=== PATIENT | female | born 1980 | race Caucasian/White ===

== ENCOUNTER 2023-03-16 18:22 | Emergency (ER) | payer OTHER ==
[2023-03-16 18:29] VITALS: BP 123/77; PULSE 122; RESP 18; TEMP 97.7
== END 2023-03-16 20:54 | disposition left against medical advice (07) ==
LOC: EC 18:22
DX: Z53.21 Procedure and treatment not carried out due to patient leaving prior to being seen by health care provider (principal)
CPT/HCPCS: 87040; 87491; 87591; 99499

== ENCOUNTER 2023-03-22 19:57 | Inpatient (IN) | payer OTHER ==
[2023-03-22] MEDS ORDERED: ACETAMINOPHEN TAB 325 MG TAB PO PRN (22:32)
[2023-03-22] MEDS ORDERED: NALOXONE 0.4 MG/ML 1 ML VIAL IV PRN (22:32)
[2023-03-22] MEDS ORDERED: ONDANSETRON 4 MG/2 ML VIAL IVP PRN (22:32)
--- NOTE | 2023-03-22 22:43 | ED ---
Abdominal Pain HPI - General Chief Complaint: Abdominal Pain Stated Complaint: abcess left fallopian tube-sent from other hospita Time Seen by Provider: 03/22/23 21:19 Source: patient Mode of arrival: ambulatory Limitations: no limitations - History of Present Illness Initial Comments: This patient is 43-year-old woman who presents to have further evaluation for left lower quadrant pain. She states the symptoms have been going on one half weeks. In addition the patient having vaginal discharge and dyspareunia. She had been seen at the clinic, was diagnosed with urinary tract infection and did complete course of antibiotic without improvement. She went to [facility], where she was seen and worked up. The workup over there incl uded labs. She had a leukocytosis of 19.7 thousand. Hemoglobin 11.6. Platelets 494. Chemistries unremarkable. Urine test negative. The patient had computed tomography scan of the abdomen which was interpreted by the radiologist there to show a dilated tubular and rounded structure in the left adnexa with prominent matos raising concern of left-sided tubo-ovarian abscess. The patient states she received multiple antibiotics, did not recall the names of them. The names not included any accompanying paperwork. MD Complaint: abdominal pain Onset/Timin -: days(s) Location: LLQ Radiation: none Migration to: no migration Severity: severe Quality: aching Consistency: constant Improves With: nothing Worsens With: nothing Associated Symptoms: other (She'll discharged) - Related Data LMP (females 10-50): 1 month Home Medications Medication Instructions Recorded Confirmed Cephalexin [Keflex] 1,000 mg PO Q12HR 03/23/23 03/23/23 Allergies Allergy/AdvReac Type Severity Reaction Status Date / Time No Known Allergies Allergy Verified 03/23/23 07:27 Review of Systems ROS Statement: Those systems with pertinent positive or pertinent negative responses have been documented in the HPI. ROS Other: All systems not noted in ROS Statement are negative. Constitutional: Denies: fever, chills, weakness Respiratory: Denies: cough, dyspnea Cardiovascular: Denies: chest pain, palpitations, edema Gastrointestinal: Reports: abdominal pain. Denies: vomiting, diarrhea, constipation, melena, hematochezia Genitourinary: Reports: discharge, dyspareunia. Denies: dysuria, frequency, hematuria Musculoskeletal: Reports: back pain Skin: Denies: rash Neurological: Denies: headache, weakness Past Medical History Past Medical History: Asthma History of Any Multi-Drug Resistant Organisms: None Reported Past Surgical History: No Surgical Hx Reported Past Psychological History: Bipolar Smoking Status: Current every day smoker Past Alcohol Use History: Rare Past Drug Use History: Marijuana General Exam General appearance: alert, in no apparent distress Head exam: Present: atraumatic, normocephalic Eye exam: Present: normal appearance. Absent: scleral icterus, conjunctival injection ENT exam: Present: normal oropharynx Neck exam: Present: normal inspection Respiratory exam: Present: normal lung sounds bilaterally. Absent: respiratory distress, wheezes, rales, rhonchi, stridor Cardiovascular Exam: Present: regular rate, normal rhythm, normal heart sounds. Absent: systolic murmur, diastolic murmur, rubs, gallop GI/Abdominal exam: Present: soft, tenderness. Absent: distended, guarding, rebound, rigid, mass, hernia Extremities exam: Present: normal inspection, normal capillary refill. Absent: pedal edema, calf tenderness Back exam: Present: normal inspection. Absent: CVA tenderness (R), CVA tenderness (L) Neurological exam: Present: alert Skin exam: Present: warm, dry, intact, normal color. Absent: rash Course Vital Signs 03/22/23 20:06 Temperature 98.9 F Pulse Rate 110 H Respiratory 18 Rate Blood Pressure 112/73 O2 Sat by Pulse 100 Oximetry Medical Decision Making - Medical Decision Making Was pt. sent in by a medical professional or institution (, PA, SEQUINS SPOOLER, urgent care, hospital, or [place] health care facility...) When possible be specific @ -Transferred here from [facility] Did you speak to anyone other than the patient for history (EMS, parent, family, police, friend...)? What history was obtained from this source @ -[No] Did you review nursing and triage notes (agree or disagree)? Why? @ -[I reviewed and agree with nursing and triage notes] Were old charts reviewed (outside hosp., previous admission, EMS record, old EKG, old radiological studies, urgent care reports/EKG's, [place] health care facility records)? Report findings @ -[No old charts were reviewed] Differential Diagnosis (chest pain, altered mental status, abdominal pain women, abdominal pain men, vaginal bleeding, weakness, fever, dyspnea, syncope, headache, dizziness, GI bleed, back pain, seizure, CVA, palpatations, mental health, musculoskeletal)? @ -[Differential Abdominal Pain Women: Appendicitis, Cholecystitis, diverticulosis, ischemic bowel, pancreatitis, hepatitis, UTI, gastroenteritis, AAA, incarcerated hernia, bowel obstruction, constipation, inflammatory bowel, hepatitis, peptic ulcer disease, splenic in farction, perforated viscus, vulvitis, ovarian torsion, PID, kidney stone, placenta abruption, this is not meant to be an all-inclusive list EKG interpreted by me (3pts min.). @ -[As above] X-rays interpreted by me (1pt min.). @ -[None done] CT interpreted by me (1pt min.). @ -[None done] U/S interpreted by me (1pt. min.). @ -[None done] What testing was considered but not performed or refused? (CT, X-rays, U/S, labs)? Why? @ -[None] What meds were considered but not given or refused? Why? @ -[None] Did you discuss the management of the patient with other professionals (professionals i.e. , PA, SEQUINS SPOOLER, lab, RT, psych nurse, perinatal social worker, line server, teacher, chief talent officer, rn case mgr)? Give summary @ -[Jamal is discussed with admitting physician and interior design consultant. Treatment recommendations incorporated Was smoking cessation discussed for >3mins.? @ -[No] Was critical care preformed (if so, how long)? @ -[No] Were there social determinants of health that impacted care today? How? (Homelessness, low income, unemployed, alcoholism, drug addiction, transportation, low edu. Level, literacy, decrease access to med. care, long-term, rehab)? @ -[No] Was there de-escalation of care discussed even if they declined (Discuss DNR or withdrawal of care, Hospice)? DNR status @ -[No] What co-morbidities impacted this encounter? (DM, HTN, Smoking, COPD, CAD, Cancer, CVA, ARF, Chemo, Hep., AIDS, mental health diagnosis, sleep apnea, morbid obesity)? @ -[None] Was patient admitted / discharged? Hospital course, mention meds given and route, prescriptions, significant lab abnormalities, going to OR and other pertinent info. @ -[As above, admitted, antibiotics started, infectious disease interior design consultant and its gynecology interior design consultant Undiagnosed new problem with uncertain prognosis? @ -[No] Drug Therapy requiring intensive monitoring for toxicity (Heparin, Nitro, Insulin, Cardizem)? @ -[No] Were any procedures done? @ -[No] Diagnosis/symptom? @ -[Acute pelvic pain, spec did tubo-ovarian abscess Acute, or Chronic, or Acute on Chronic? @ -[Acute Uncomplicated (without systemic symptoms) or Complicated (systemic symptoms)? @ -[Uncomplicated Side effects of treatment? @ -[No] Exacerbation, Progression, or Severe Exacerbation? @ -[No] Poses a threat to life or bodily function? How? (Chest pain, USA, GA, pneumonia, PE, COPD, DKA, ARF, appy, cholecystitis, CVA, Diverticulitis, Homicidal, Suicidal, threat to staff... and all critical care pts) @ -[Worsening pelvic infection may be threatening to ovarian function - Lab Data Result diagrams: 03/26/23 06:45 03/25/23 07:41 Disposition Clinical Impression: Abdominal pain, Tubo-ovarian abscess Disposition: ADMITTED IP TO THIS HOSP Condition: Good Is patient prescribed a controlled substance at d/c from ED?: No
[2023-03-22] MEDS ORDERED: GENTAMICIN PER PHARMACY MISCELLANE SCH (22:45)
[2023-03-23] MEDS: AMPICILLIN 2,000 MG in SODIUM CHLORIDE 0.9% 100 ML IVPB SCH ×4 (06:45→22:58)
[2023-03-23] MEDS ORDERED: GENTAMICIN 320 MG in SODIUM CHLORIDE 0.9% 100 ML IVPB ONE (07:00)
[2023-03-23 08:07] LABS: African American GFR (CKD) >90 (>60 ml/min/1.73 sqM); Anion Gap 11 mmol/L; Blood Urea Nitrogen 6 mg/dL (7-17); Carbon Dioxide 20 mmol/L (22-30); Chloride 106 mmol/L (98-107); Glucose 85 mg/dL (74-99); Non-African American GFR(CKD) >90 (>60 ml/min/1.73 sqM); Potassium 4.7 mmol/L (3.5-5.1); Sodium 137 mmol/L (137-145)
[2023-03-23] MEDS: MORPHINE SULFATE 4 MG/ML SYRINGE IV PRN ×3 (08:27→19:46)
[2023-03-23] MEDS: FAMOTIDINE 20 MG TAB PO SCH ×2 (09:16→19:47)
--- NOTE | 2023-03-23 17:24 | P.OBCN ---
History of Present Illness Consult date: 03/23/23 Requesting physician: Primo Darling Reason for consult: pelvic pain Chief complaint: Pelvic pain and vaginal discharge History of present illness: This is a 43-year-old 0 woman who was transferred from [facility] with left tubo-ovarian abscess. She reports onset of pelvic pain 2-3 weeks ago and was seen at an urgent care approximately 5 days ago. At that time she was diagnosed with a urinary tract infection and started on antibiotics. This did not improve her pain and approximately 3 days ago she was having intercourse and experienced severe pelvic pain and sudden increase in purulent vaginal discharge. This vaginal discharge has continued and she presented to the outlying emergency room. There she underwent CT of the abdomen and pelvis where a left tubo-ovarian abscess was diagnosed. She also had an elevated white blood cell count of 19,000. She apparently was admitted there with plans for further evaluation that did not occur. She was therefore tra nsferred to our facility for further gynecologic evaluation. Currently she reports she has ongoing left lower quadrant pain and fullness. She denies nausea, vomiting, fever, chills, vaginal bleeding. She is having a yellow vaginal discharge currently. She denies shortness of breath or chest pain. Her gynecologic history is significant for previous abnormal Pap smears, possible cervical cancer treated in [place] 5 years ago. She also has a history of chlamydia and Trichomonas in the past. She denies a history of pelvic inflammatory disease or other pelvic infections that she is aware of. Review of Systems Constitutional: Denies chills, Denies fever, Denies night sweats Cardiovascular: Denies chest pain, Denies high blood pressure, Denies irregular heart beat Respiratory: Denies cough, Denies dyspnea Gastrointestinal: Reports abdominal pain, Denies BRBPR, Denies change in bowel habits, Denies constipation, Denies diarrhea, Denies nausea, Denies vomiting Genitourinary: Reports abnormal vaginal bleeding, Reports dyspareunia, Reports pelvic pain, Reports vaginal discharge, Reports vaginal odor, Denies genital sores Menstruation: Reports cycle variable Integumentary: Denies rash, Denies sores Neurological: Denies headaches Hematologic/Lymphatic: Denies easy bleeding, Denies easy bruising Past Medical History Past Medical History: Asthma History of Any Multi-Drug Resistant Organisms: None Reported Past Surgical History: No Surgical Hx Reported Past Psychological History: Bipolar Smoking Status: Current every day smoker Past Alcohol Use History: Rare Past Drug Use History: Marijuana Medications and Allergies Home Medications Medication Instructions Recorded Confirmed Type Cephalexin [Keflex] 1,000 mg PO Q12HR 03/23/23 03/23/23 History Allergies Allergy/AdvReac Type Severity Reaction Status Date / Time No Known Allergies Allergy Verified 03/23/23 07:27 Exam Vital Signs Temp Pulse Pulse Resp BP BP Pulse Ox 03/23/23 09:00 98.5 F 80 18 100/63 97 03/23/23 04:00 98.1 F 86 18 99/63 99 03/22/23 20:06 98.9 F 110 H 18 112/73 100 Intake and Output 03/23/23 03/23/23 03/23/23 06:59 14:59 22:59 Intake Total 120 Balance 120 Intake: Oral 120 Other: # Voids 2 This is a pleasant, comfortable appearing female in no acute distress. She is moving freely throughout the room on and off of the bed throughout her discussion and sitting in D and style or on her knees without apparent discomfort. HEENT exam is unremarkable with no palpable lymphadenopathy. Her breathing is unlabored and her heart is a regular rate and rhythm. Her abdomen is slim and soft with left lower quadrant pain to moderate to palpation. There is no rebound but there is some guarding. There is no right lower quadrant pain there is no flank pain. Pelvic examination is declined by the patient. She did have a pelvic exam in the emergency room at [facility]. Results Result Diagrams: 03/23/23 07:20 Abnormal Lab Results - Last 24 Hours (Table) 03/23/23 Range/Units 07:20 Carbon Dioxide 20 L (22-30) mmol/L BUN 6 L (7-17) mg/dL Creatinine 0.47 L (0.52-1.04) mg/dL CT scan - abdomen: report reviewed (Report dated 03/22/2023 CT abdomen and pelvis shows dilated tube. And rounded hypodense structure in the left adnexa with prominence of the matos of the structure raising concerns for left sided tubo-ovarian abscess. There are no specific measurements noted.) CT scan - pelvis: report reviewed Assessment and Plan (1) Abdominal pain Current Visit: Yes Status: Acute Code(s): R10.9 - UNSPECIFIED ABDOMINAL PAIN SNOMED Code(s): 63059618 (2) Tubo-ovarian abscess Current Visit: Yes Status: Acute Code(s): N70.93 - SALPINGITIS AND OOPHORI TIS, UNSPECIFIED SNOMED Code(s): 10124775 Plan: 43-year-old woman with suspected left tubo-ovarian abscess. Blood urine and cervical cultures were taken at the [facility] and results are pending. End. Triple Antibiotic therapy with ampicillin, gentamicin and clindamycin has been initiated and is appropriate for the situation. This should be continued until there is clinical improvement. I would recommend repeating pelvic imaging by ultrasound as well as serial white blood cell count. The patient is afebrile and does not have a surgical abdomen. I reviewed with the patient and her partner that we try to avoid surgical int ervention with tubo-ovarian abscess in order to prevent spillage of abscess material into the abdomen. Should her condition worsen, abscess not decrease in size or show signs of rupture then surgical intervention may be necessary. Typically this will start to improve with several days of IV antibiotics followed by a course of outpatient oral antibiotics. We will await culture results from the [facility] and adjust antibiotic regimen as necessary. Time with Patient: Greater than 30
[2023-03-23] MEDS: HYDROcodone/APAP 5-325MG 1 EACH TAB PO PRN ×3 (17:49→21:53)
[2023-03-23] MEDS: SODIUM CHLORIDE 0.9% 1,000 ML IV SCH ×2 (18:43→20:51)
[2023-03-23 19:43] LABS: Basophils % (A) 0 %; Eosinophils # (A) 0.2 k/uL (0-0.7); Eosinophils % (A) 1 %; HCT 36.9 % (34.0-46.0); HGB 12.1 gm/dL (11.4-16.0); Hypochromasia Slight; Lymphocytes # (A) 1.6 k/uL (1.0-4.8); Lymphocytes % (A) 11 %; MCH 31.5 pg (25.0-35.0); MCHC 32.7 g/dL (31.0-37.0); MCV 96.2 fL (80.0-100.0); Monocytes # (A) 0.7 k/uL (0-1.0); Monocytes % (A) 5 %; Neutrophils # (A) 12.3 k/uL (1.3-7.7); Neutrophils % (A) 83 %; Platelet Count 601 k/uL (150-450); RBC 3.83 m/uL (3.80-5.40); RDW 12.9 % (11.5-15.5); WBC 14.9 k/uL (3.8-10.6)
[2023-03-24] MEDS: MORPHINE SULFATE 4 MG/ML SYRINGE IV PRN ×6 (00:32→23:55)
[2023-03-24] MEDS: SODIUM CHLORIDE 0.9% 1,000 ML IV SCH ×2 (01:24→20:43)
[2023-03-24] MEDS: HYDROcodone/APAP 5-325MG 1 EACH TAB PO PRN ×5 (01:53→20:55)
[2023-03-24] MEDS: CLINDAMYCIN 900 MG in DEXTROSE 5% IN WATER 50 ML IVPB SCH ×6 (04:50→20:55)
[2023-03-24] MEDS: AMPICILLIN 2,000 MG in SODIUM CHLORIDE 0.9% 100 ML IVPB SCH ×3 (05:21→18:06)
[2023-03-24 06:32] LABS: African American GFR (CKD) >90 (>60 ml/min/1.73 sqM); Non-African American GFR(CKD) >90 (>60 ml/min/1.73 sqM)
[2023-03-24] MEDS: FAMOTIDINE 20 MG TAB PO SCH ×2 (08:30→20:55)
--- NOTE | 2023-03-24 08:55 | US ---
EXAMINATION TYPE: US transvaginal DATE OF EXAM: 03/23/2023 COMPARISON: NONE CLINICAL INDICATION: Female, 43 years old with history of suspected left tuboovarian abcess; Diagnose d with a pelvic abscess on CT and [facility]. TECHNIQUE: Transvaginal (TV). Date of LMP: 03/14/23 EXAM MEASUREMENTS: Uterus: 7.7 x 3.6 x 3.4 cm Endometrial Stripe: 0.8 cm Right Ovary: 2.2 x 1.4 cm Left Ovary: Not well visualized. Unsure if the ovary is enlarged if that was part of the abscess 1. Uterus: Anteverted wnl 2. Endometrium: There may be fluid inside endo 3. Right Ovary: wnl 4. Left Ovary: Not well visualized. 5. Bilateral Adnexa: Large Complex area seen in left adnexa measuring 10.8 x 8.4 x 6.4cm 6. Posterior cul-de-sac: Free fluid seen IMPRESSION: 1. Large complex predominately cystic mass or masses with septations and internal increased echoes co uld reflect tubo-ovarian abscess, hemorrhagic cysts, or endometrioma however neoplasm is not exclude d as well as . Free fluid noted.
[2023-03-24 08:59] LABS: Basophils # (A) 0.08 X 10*3/uL (0.00-0.10); Basophils % (A) 0.6 %; Eosinophils # (A) 0.25 X 10*3/uL (0.04-0.35); Eosinophils % (A) 1.8 %; HCT 34.3 % (37.2-46.3); HGB 10.5 d/dL (12.0-15.0); Lymphocytes # (A) 2.68 X 10*3/uL (0.90-5.00); MCH 29.5 pg (27.0-32.0); MCHC 30.6 d/dL (32.0-37.0); MCV 96.3 FL (80.0-97.0); Mean Platelet Volume 9.1 FL (9.5-12.2); Monocytes # (A) 0.94 X 10*3/uL (0.20-1.00); Monocytes % (A) 6.7 %; NRBC Per 100 WBC 0 X 10*3/uL (0.00-0.01); Neutrophils # (A) 10.07 X 10*3/uL (1.80-7.70); Neutrophils % (A) 71.2 %; Platelet Count 501 X 10*3/uL (140-440); RBC 3.56 X 10*6/uL (4.10-5.20); WBC 14.12 X 10*3/uL (4.50-10.00)
[2023-03-24] MEDS ORDERED: GENTAMICIN 320 MG in SODIUM CHLORIDE 0.9% 100 ML IVPB SCH (09:00)
--- NOTE | 2023-03-24 09:37 | P.PN ---
Subjective Progress Note Date: 03/24/23 Principal diagnosis: Tubo-ovarian abscess Pain better controlled with Winter overnight. Continues with some foul vaginal discharge, no vaginal bleeding. Objective - Vital Signs Vital signs: Vital Signs Temp 98.5 F 03/24/23 06:59 Pulse 86 03/24/23 06:59 Resp 16 03/24/23 06:59 BP 106/71 03/24/23 06:59 Pulse Ox 100 03/24/23 06:59 FiO2 Intake & Output 03/23/23 03/24/23 03/24/23 18:59 06:59 18:59 Intake Total 120 Output Total 0 Balance 120 0 Intake: Oral 120 Output: Stool 0 Other: # Voids 1 0 - Exam Comfortable appearing female in no acute distress. Targeted physical exam is performed: The abdomen is slim and soft with left lower quadrant pain, no rebound or guarding. No upper abdominal or right lower quadrant pain. No bilateral flank pain. - Labs CBC & Chem 7: 03/24/23 06:03 03/24/23 06:03 Labs: Abnormal Lab Results - Last 24 Hours (Table) 03/23/23 03/24/23 Range/Units 18:16 06:03 WBC 14.9 H 14.12 H (3.8-10.6) k/uL RBC 3.56 L (4.10-5.20) X 10*6/uL Hgb 10.5 L (12.0-15.0) d/dL Hct 34.3 L (37.2-46.3) % MCHC 30.6 L (32.0-37.0) d/dL Plt Count 601 H 501 H (150-450) k/uL MPV 9.1 L (9.5-12.2) FL Neutrophils # 12.3 H 10.07 H (1.3-7.7) k/uL - Imaging and Cardiology US - abdomen: report reviewed, image reviewed (Pelvic ultrasound showing complex 10 x 6 cm left adnexal structure consistent with tubo-ovarian abscess versus hemorrhagic cyst versus neoplasm) Assessment and Plan (1) Abdominal pain Current Visit: Yes Status: Acute Code(s): R10.9 - UNSPECIFIED ABDOMINAL PAIN SNOMED Code(s): 93349971 (2) Tubo-ovarian abscess Current Visit: Yes Status: Acute Code(s): N70.93 - SALPINGITIS AND OOPHORITIS, UNSPECIFIED SNOMED Code(s): 55918740 Plan: 43-year-old woman with suspected left tubo-ovarian abscess. Blood urine and cervical cultures were taken at the [facility] and results are pending. End. Triple Antibiotic therapy with ampicillin, gentamicin and clindamycin has been initiated and is appropriate for the situation. This should be continued until there is clinical improvement. I would recommend repeating pelvic imaging by ultrasound as well as serial white blood cell count. The patient is afebrile and does not have a surgical abdomen. I reviewed with the patient and her partner that we try to avoid surgical intervention with tubo-ovarian abscess in order to prevent spillage of abscess material into the abdomen. Should her condition worsen, abscess not decrease in size or show signs of rupture then surgical intervention may be necessary. Typically this will start to improve with several days of IV antibiotics followed by a course of outpatient oral antibiotics. We will await culture results from the [facility] and adjust antibiotic regimen as necessary. 03/24/23: Patient is status post 24 hours of ampicillin and gentamicin and clindamycin. Her blood cell count has decreased from 19,000 to 14,000. She remains afebrile with a T-max of 99. Her pain is better controlled with oral pain medications. Her clinical exam remains consistent. Ultrasound report was reviewed with the radiologist for possible percutaneous drainage of the left pelvic abscess. They felt that the abscess was too deep in the pelvis to comfortably access for the patients. I reviewed that with the patient in detail including options for care. At this point as she is responding clinically to IV antibiotics I recommend we continue. Should her white blood cell count increase, if she becomes febrile or her pain significantly worsens then she may require surgical intervention with drainage of pelvic abscess. All questions were answered and the patient is comfortable with this plan. Time with Patient: Less than 30
--- NOTE | 2023-03-24 12:10 | CDI ---
Documentation Clarification Form Date: 03/24/2023 11:53:46 AM From: Rebecca Jj RN CCDS Phone: [phone] Admit Date: 03/22/2023 10:32:00 PM Patient Name: Cydney Biggs Visit Number: [id number] Discharge Date: ATTENTION: The Clinical Documentation Specialists (CDI) and [facility] Coding Staff appreciate your assistance in clarifying documentation. Please respond to the clarification below the line at the bottom and electronically sign. The CDI & [facility] Coding staff will review the response and follow-up if needed. Please note: Queries are made part of the Legal Health Record. If you have any questions, please contact the author of this message via ITS. Dr. Primo Darling The patient has [insert documentation with location and date]. Based on this information and the findings below, is there an additional diagnosis that is clinically appropriate for this patient? History/Risk Factors: 43-year-old female presents to the ED with left lower quadrant pain, vaginal discharge and dyspareunia for a week and a half. The patient was diagnosed at the clinic with uti and completed antibiotic without improvement. The patient went to [facility] and worked up Wbc 19.7, negative, CT abd dilated tubular and rounded structure in the left adnexa with prominent matos raising concern for left sided tubo ovarian abscess. Patient received multiple antibiotics. Medical History: Asthma, Bipolar and current every day smoker 03/22, H&P. Clinical Indicators: Labs, 03/23: Wbc: 14.9; Neutrophils 12.3 Vitals signs, 03/22: B/P 112/73; HR 110; RR 18; SpO2 100% room air Transvaginal US, 03/23: Large complex predominately cystic mass or masses with septations and internal increased echoes could reflect tubo ovarian abscess, hemorrhagic cysts or endometrioma however neoplasm is not excluded as well. Free fluid noted. Treatment: 0.9NS 75cc/hr IV Antibiotics: 03/22 Ampicillin IVPB Q6HR; 03/23 Gentamicin IVPB x 1; 03/23 Clindamycin IVPB Q8H; 03/24 Gentamicin IVPB Q24HR Is there an additional diagnosis that is clinically appropriate for this patient? [ ] Sepsis, present on admission [ ] Sepsis ruled out [ ] Other, please specify [ ] Unable to determine SIRS Criteria: 2 or more of the following may indicate SIRS Temperature < 96.8F (36C) or > 101.0F (38.3C) Heart Rate > 90 bpm Respiratory Rate > 20 breaths/min or PaCO2 < 32 mmHg White Blood Cell Count > 12,000 or < 4,000 cells/mm3 or > 10% bands (Template Last Reviewed: June 2022) MTDD
--- NOTE | 2023-03-24 12:30 | CT ---
EXAMINATION TYPE: CT pelvis w con DATE OF EXAM: 03/24/2023 COMPARISON: Ultrasound 03/23/2023 HISTORY: 43-year-old female left TOA, fallopian tube abscess TECHNIQUE: Contiguous axial scanning of the pelvis following administration of 100 ml Isovue 300 IV c ontrast. Delayed images through the bladder and coronal/sagittal reconstructions performed. CT DLP: 472.1 mGycm Automated exposure control for dose reduction was used. FINDINGS: Complex cystic mass with thick peripheral enhancing matos and some serpiginous components measuring u p to 10.8 cm AP by 5.9 cm wide by 6.7 cm craniocaudal located within the left adnexa. Dilated, thicke darin inflamed left fallopian tube is demonstrated, axial image 18 and sagittal image 61. Unable to britney mere distinguish the right ovary from the carotid soft tissue and clustered bowel loops. Prominent fluid-filled nondilated small bowel loops lower abdomen and pelvis can represent an ileus. Scattered moderate stool. There is mass effect onto the anteverted uterus. Moderate to severe circumferential bladder wall thic kening. No pelvic lymphadenopathy is seen. Bones: Osseous destructive process. IMPRESSION: 1. FINDINGS CONFIRM COMPLEX LEFT-SIDED TUBO-OVARIAN ABSCESS MEASURING 10.8 BY 6.7 X 5.9 CM. 2. MODERATE TO SEVERE CIRCUMFERENTIAL BLADDER WALL THICKENING MAY BE DUE TO CONTIGUOUS INFLAMMATION O R CYSTITIS.
[2023-03-24] MEDS: DOCUSATE 100 MG CAP PO SCH (20:55)
--- NOTE | 2023-03-24 21:20 | HP ---
HISTORY AND PHYSICAL HISTORY OF PRESENT ILLNESS: The patient came to hospital with severe abdominal pain. Transferred from the other hospital. She was found to have a tuboovarian abscess, transferred from the other hospital with gynecology consult. She appeared draining the abscesses, treated with triple antibiotics at this time and no fever or high white count. Family wants to have it done right now, drained surgically. Talked to the family, see what they want to do. Get Dr. Amanda's opinion, Infectious Disease. ALLERGIES: Negative. REVIEW OF SYSTEMS: A 14-point review of system is negative except as mentioned above. PAST MEDICAL HISTORY: Asthma, bipolar. SOCIAL HISTORY: Current everyday smoker. PHYSICAL EXAMINATION: VITAL SIGNS: Stable, afebrile. Temp 98.9, pulse 110, respiratory rate 16 to 18, blood pressure is 112/78, and O2 100. CARDIOVASCULAR: S1, S2. ABDOMEN: Mild guarding in the lower quadrants. EXTREMITIES: No cyanosis, clubbing, or edema. NEUROLOGIC: Cranial nerves intact. SKIN: Warm, dry, intact. CT scan ultrasounds are reviewed. ASSESSMENT: Tuboovarian abscess, pushing the fallopian tubes about 10 x 5.9 x 6.7 cm. Abdominal pain secondary to above, smoker, and asthma, possibly transfer her down to [facility] possibly depending on what Dr. Amanda says and what the family wants. Otherwise continue with triple antibiotics. Prognosis guarded. MMODL / IJN: [id number] /
[2023-03-25] MEDS: HYDROcodone/APAP 5-325MG 1 EACH TAB PO PRN ×5 (00:57→21:15)
[2023-03-25] MEDS: PIPERACILLIN-TAZOBACTAM 3.375 GM in SODIUM CHLORIDE 0.9% 100 ML IVPB SCH ×4 (00:58→22:47)
[2023-03-25] MEDS: SODIUM CHLORIDE 0.9% 1,000 ML IV SCH ×2 (01:34→15:45)
--- NOTE | 2023-03-25 02:56 | PN ---
PROGRESS NOTE ADDENDUM: Sepsis present on admission. MMODL / IJN: [id number] /
[2023-03-25] MEDS: MORPHINE SULFATE 4 MG/ML SYRINGE IV PRN ×5 (06:31→22:46)
[2023-03-25] MEDS: DOCUSATE 100 MG CAP PO SCH ×2 (08:41→21:15)
[2023-03-25] MEDS: FAMOTIDINE 20 MG TAB PO SCH ×2 (08:41→21:15)
[2023-03-25 08:50] LABS: Basophils % (A) 0 %; Eosinophils # (A) 0.3 k/uL (0-0.7); Eosinophils % (A) 2 %; HCT 35.2 % (34.0-46.0); HGB 11.2 gm/dL (11.4-16.0); Hypochromasia Slight; Lymphocytes # (A) 1.9 k/uL (1.0-4.8); Lymphocytes % (A) 11 %; MCH 30.2 pg (25.0-35.0); MCHC 31.8 g/dL (31.0-37.0); Mean Platelet Volume 7.9; Monocytes # (A) 0.7 k/uL (0-1.0); Monocytes % (A) 4 %; Neutrophils % (A) 82 %; Platelet Count 617 k/uL (150-450); RBC 3.71 m/uL (3.80-5.40); RDW 13.1 % (11.5-15.5)
[2023-03-25 10:43] LABS: ALT 29 U/L (4-34); AST 18 U/L (14-36); African American GFR (CKD) >90 (>60 ml/min/1.73 sqM); Albumin 3.1 g/dL (3.5-5.0); Alkaline Phosphatase 78 U/L (38-126); Anion Gap 11 mmol/L; Blood Urea Nitrogen 7 mg/dL (7-17); Calcium 9.6 mg/dL (8.4-10.2); Carbon Dioxide 21 mmol/L (22-30); Chloride 105 mmol/L (98-107); Globulin 3.1 g/dL; Glucose 106 mg/dL (74-99); Non-African American GFR(CKD) >90 (>60 ml/min/1.73 sqM); Potassium 4.8 mmol/L (3.5-5.1); Sodium 137 mmol/L (137-145); Total Bilirubin 0.4 mg/dL (0.2-1.3); Total Protein 6.2 g/dL (6.3-8.2)
--- NOTE | 2023-03-25 11:35 | P.PN ---
Subjective Progress Note Date: 03/25/23 Principal diagnosis: Tubo-ovarian abscess The patient reports some increase in pain in the last 12-24 hours but fell behind on her pain medications as there was an issue with the IV. She otherwise is performing all activities of daily living. Objective - Vital Signs Vital signs: Vital Signs Temp 98.5 F 03/25/23 07:12 Pulse 83 03/25/23 07:12 Resp 20 03/25/23 10:24 BP 114/61 03/25/23 07:12 Pulse Ox 100 03/25/23 07:12 FiO2 Intake & Output 03/24/23 03/25/23 03/25/23 18:59 06:59 18:59 Output Total 0 Balance 0 Output: Stool 0 Other: # Voids 3 4 - Exam Physical examination demonstrates that her abdomen is nondistended, soft, with mild to moderate left or quadrant tenderness without guarding or rebound. Un clear whether this is improved or similar to previous exams as I have not previously examined her. There are no palpable masses. Her extremities without any cyanosis, clubbing, or edema and are nontender to palpation bilaterally. - Labs CBC & Chem 7: 03/25/23 07:41 03/25/23 07:41 Labs: Abnormal Lab Results - Last 24 Hours (Table) 03/25/23 03/25/23 03/25/23 Range/Units 07:41 07:41 07:41 WBC 17.0 H (3.8-10.6) k/uL RBC 3.71 L (3.80-5.40) m/uL Hgb 11.2 L (11.4-16.0) gm/dL Plt Count 617 H (150-450) k/uL Neutrophils # 14.0 H (1.3-7.7) k/uL Carbon Dioxide 21 L (22-30) mmol/L Glucose 106 H (74-99) mg/dL C-Reactive Protein 14.1 H (<1.0) mg/dL Total Protein 6.2 L (6.3-8.2) g/dL Albumin 3.1 L (3.5-5.0) g/dL Assessment and Plan (1) Abdominal pain Current Visit: Yes Status: Acute Code(s): R10.9 - UNSPECIFIED ABDOMINAL PAIN SNOMED Code(s): 60163512 (2) Tubo-ovarian abscess Current Visit: Yes Status: Acute Code(s): N70.93 - SALPINGITIS AND OOPHORITIS, UNSPECIFIED SNOMED Code(s): 86621017 Plan: I discussed the case with infectious disease. He does not believe that an abscess of the size will resolve slowly with antibiotics. Nevertheless, to operate under the circumstances of acute infection and inflammation will be extraordinarily difficult secondary to the tissue being so acutely inflamed. He has changed the antibiotic regimen to perhaps get better penetration of abscess and coverage in general. I would recommend that the standard of care would be to continue IV antibiotics in order to continue to attempt to decrease the inflammation as well as infection unless there is a significant worsening of clinical condition. She may still require surgery at some point, but is currently best treated with conservative management. I have discussed the case with her at some length and she understands the reasoning.
--- NOTE | 2023-03-25 21:34 | P.CONS ---
History of Present Illness - Reason for Consult Consult date: 03/25/23 Abscess Requesting physician: Primo Darling - Chief Complaint Abdominal pain and vaginal drainage x few weeks - History of Present Illness Patient is a 43-year-old female with a past medical history significant for asthma bipolar depression current everyday smoker presented to the hospital 3 days ago for evaluation of left lower quadrant abdominal pain patient symptom apparently has been going on for about 3 weeks and this patient initially started having some clear vaginal discharge afterwards the patient did have a dyspareunia and heavy menses patient apparently was seen in the outpatient clinic has been diagnosed with a UTI and completed course of anti biotic however the patient's symptoms did not improve the patient continued to have pain to the left lower quadrant area describing it to be sharp intensity was almost 10 out of 10 in severity by the time he presented to the hospital without radiation but having associated nausea vomiting and vaginal drainage patient on presentation to the hospital was afebrile and no fever hypercardia subsequently patient did have a white count of 14.9 which is up to 17,000 today creatinine was normal, patient did have a CT of the pelvis which did shows a complex left-sided tubo-ovarian abscess measuring 10.8 X6.7X 5.9 cm with moderate to severe circumferential bladder wall thickening patient has been on ampicillin gentamicin and clindamycin infectious was consulted last evening for further management of antibiotic therapy Review of Systems Positive point and negatives has been mentioned in the HPI, complete review of systems was performed and all other systems are negative Past Medical History Past Medical History: Asthma History of Any Multi-Drug Resistant Organisms: None Reported Past Surgical History: No Surgical Hx Reported Past Psychological History: Bipolar Smoking Status: Current every day smoker Past Alcohol Use History: Rare Past Drug Use History: Marijuana Medications and Allergies Home Medications Medication Instructions Recorded Confirmed Type Cephalexin [Keflex] 1,000 mg PO Q12HR 03/23/23 03/23/23 History Allergies Allergy/AdvReac Type Severity Reaction Status Date / Time No Known Allergies Allergy Verified 03/23/23 07:27 Physical Exam Vitals: Vital Signs Temp Pulse Resp BP Pulse Ox 03/25/23 10:24 20 03/25/23 07:12 98.5 F 83 19 114/61 100 03/25/23 01:49 98.3 F 81 19 96/62 98 03/24/23 19:05 98.3 F 34 L 18 106/68 98 03/24/23 13:51 98.0 F 84 16 105/69 100 Intake and Output 03/24/23 03/25/23 03/25/23 22:59 06:59 14:59 Output Total 0 Balance 0 Output: Stool 0 Other: # Voids 3 4 GENERAL DESCRIPTION: Middle-aged female lying in bed, no distress. No tachypnea or accessory muscle of respiration use. HEENT: Shows Pallor , no scleral icterus. Oral mucous membrane is dry. No pharyngeal erythema or thrush NECK: Trachea central, no thyromegaly. LUNGS: Unlabored breathing. Clear to auscultation anteriorly. No wheeze or crackle. HEART: S1, S2, regular rate and rhythm. No loud murmur ABDOMEN: Soft, left lower quadrant abdominal tenderness EXTREMITIES: No edema of feet. SKIN: No rash, no masses palpable. NEUROLOGICAL: The patient is awake, alert, oriented x3, mood and affect normal. Results CBC & Chem 7: 03/26/23 06:45 03/25/23 07:41 Labs: Abnormal Lab Results - Last 24 Hours (Table) 03/25/23 Range/Units 07:41 WBC 17.0 H (3.8-10.6) k/uL RBC 3.71 L (3.80-5.40) m/uL Hgb 11.2 L (11.4-16.0) gm/dL Plt Count 617 H (150-450) k/uL Neutrophils # 14.0 H (1.3-7.7) k/uL Assessment and Plan (1) Tubo-ovarian abscess Status: Acute Code(s): N70.93 - SALPINGITIS AND OOPHORITIS, UNSPECIFIED SNOMED Code(s): 72126201 Plan: 1patient presented to hospital with left lower abdominal pain did have some vaginal drainage and this patient has been diagnosed with a large left tubo- ovarian abscess, which cannot be drained CT-guided clinically doubt this large abscess will heal with antibiotic therapy alone this has been discussed with the WAREHOUSE PRICING AND INVENTORY CLERK however as the patient does not look toxic and they have suggested continuation of antibiotic while waiting for the inflammation to subside before implanting to drainage of this abscess 2-ampicillin gentamicin and clindamycin has been discontinued 3-patient has been started on Zosyn 3.375 g every 8 hours to continue 4-we will monitor her white count and clinical condition closely We will follow on clinical condition and cultures to further adjust medication if needed Thank you for this consultation we will follow the patient along with you Dictation was produced using [employer] dictation software. please excuse any grammatical, word or spelling errors. Time with Patient: Greater than 30
--- NOTE | 2023-03-25 22:38 | PN ---
PROGRESS NOTE SUBJECTIVE: Discussed the case multiple times on 03/24/2023 with [facility], who accepted her admission. Enterprise Analyst wants to talk to our weed controller to see why the surgical drainage could not be done up here and has to be done down there. We will try to arrange that. Otherwise, continue on Zosyn. Has talked to Dr. Amanda, who recommends transfer also. Family wants to go now and get it drained or get it drained by somebody. OBJECTIVE: VITAL SIGNS: Pulse is 83, temp 98.3, blood pressure 114/61, O2 of 100% on room air. CARDIOVASCULAR: S1, S2. LUNGS: Clear. GI: Soft. Mild tenderness to the left lower quadrant. HEMATOLOGY: Negative Homans. White count is back up to 17. Hemoglobin is 11.2. The patient's Gynecology would not drain it here, we have to sent down to [facility] . C-reactive protein went up to 14.1. Prognosis is guarded. MMODL / IJN: [id number] /
[2023-03-26] MEDS: HYDROcodone/APAP 5-325MG 1 EACH TAB PO PRN ×5 (01:43→18:32)
[2023-03-26] MEDS: MORPHINE SULFATE 4 MG/ML SYRINGE IV PRN ×2 (03:31→07:29)
[2023-03-26] MEDS: SODIUM CHLORIDE 0.9% 1,000 ML IV SCH (06:32)
[2023-03-26] MEDS: PIPERACILLIN-TAZOBACTAM 3.375 GM in SODIUM CHLORIDE 0.9% 100 ML IVPB SCH ×2 (09:37→16:06)
[2023-03-26] MEDS: FAMOTIDINE 20 MG TAB PO SCH (09:37)
[2023-03-26] MEDS: DOCUSATE 100 MG CAP PO SCH (09:37)
[2023-03-26] MEDS: HYDROmorphone 1 MG/ML 1 ML SYRINGE IVP PRN ×3 (11:33→19:26)
--- NOTE | 2023-03-26 13:07 | P.PN ---
Subjective Progress Note Date: 03/26/23 Principal diagnosis: Tubo-ovarian abscess The patient reports that she continues to have fairly significant left lower quadrant discomfort though she is ambulating routinely and sitting comfortably in her bed. She has been afebrile. She is otherwise tolerating a regular diet. The primary care doctor has requested the patient be transferred to [facility] for further ongoing care and the patient has made the same request. Objective - Vital Signs Vital signs: Vital Signs Temp 97.9 F 03/26/23 07:34 Pulse 89 03/26/23 07:34 Resp 16 03/26/23 07:34 BP 109/70 03/26/23 07:34 Pulse Ox 100 03/26/23 07:34 FiO2 Intake & Output 03/25/23 03/26/23 03/26/23 18:59 06:59 18:59 Intake Total 450 Balance 450 Intake: Oral 450 Other: # Voids 2 3 - Exam Examination is minimal as the patient is on her way to the restroom and has requested transfer. She reports no significant difference in symptomatology. - Labs CBC & Chem 7: 03/25/23 07:41 03/25/23 07:41 Assessment and Plan (1) Abdominal pain Current Visit: Yes Status: Acute Code(s): R10.9 - UNSPECIFIED ABDOMINAL PAIN SNOMED Code(s): 61879603 (2) Tubo-ovarian abscess Current Visit: Yes Status: Acute Code(s): N70.93 - SALPINGITIS AND OOPHORITIS, UNSPECIFIED SNOMED Code(s): 61920203 Plan: As noted in history above, the primary care doctor, admitting physician, and the patient herself has requested transfer to [facility] for further ongoing care. I still feel relatively strongly that antibiotics are currently the most indicated ongoing treatment. Nevertheless, I have discussed the case with a Dr. Osorio at [facility] and provided all of the necessary clinical history and she has accepted the transfer. Further arrangements will be made through the admitting physician here at [facility], Dr. Primo Bledsoe.
[2023-03-26 13:27] LABS: Basophils # (A) 0.09 X 10*3/uL (0.00-0.10); Basophils % (A) 0.7 %; Eosinophils # (A) 0.29 X 10*3/uL (0.04-0.35); Eosinophils % (A) 2.2 %; HCT 34.7 % (37.2-46.3); HGB 10.7 d/dL (12.0-15.0); Lymphocytes % (A) 18.8 %; MCH 29.6 pg (27.0-32.0); MCHC 30.8 d/dL (32.0-37.0); MCV 96.1 FL (80.0-97.0); Monocytes # (A) 0.78 X 10*3/uL (0.20-1.00); Monocytes % (A) 5.9 %; NRBC Per 100 WBC 0 X 10*3/uL (0.00-0.01); Neutrophils # (A) 9.54 X 10*3/uL (1.80-7.70); Neutrophils % (A) 71.9 %; Platelet Count 562 X 10*3/uL (140-440); RBC 3.61 X 10*6/uL (4.10-5.20); RDW 12.9 % (11.5-14.5); WBC 13.27 X 10*3/uL (4.50-10.00)
[2023-03-26 14:16] VITALS: BP 118/64; PULSE 76; RESP 17; TEMP 97.8
--- NOTE | 2023-03-26 14:56 | P.PN ---
Subjective Progress Note Date: 03/26/23 Principal diagnosis: Left tubo-ovarian abscess Patient is a 43-year-old female with a past medical history significant for asthma bipolar depression current everyday smoker presented to the hospital for evaluation of left lower quadrant abdominal pain , patient has been diagnosed with a large left-sided tubo-ovarian abscess. On today's evaluation that is 03/26/2023, the patient remains to be afebrile, the patient is breathing comfortably on room air without the need for supplemental oxygen , the patient denies chest pain or cough, patient denies nausea/vomiting however still combining of left-sided abdominal pain is somewhat controlled with the pain medication and continued to have vaginal drainage. Patient white count is down to 13.27, creatinine 0.66 Objective - Vital Signs Vital signs: Vital Signs Temp 97.8 F 03/26/23 13:58 Pulse 76 03/26/23 13:58 Resp 17 03/26/23 13:58 BP 118/64 03/26/23 13:58 Pulse Ox 100 03/26/23 13:58 FiO2 Intake & Output 03/25/23 03/26/23 03/26/23 18:59 06:59 18:59 Intake Total 450 200 Balance 450 200 Intake: Oral 450 200 Other: # Voids 2 3 - Exam GENERAL DESCRIPTION: Middle-aged female lying in bed in no distress RESPIRATORY SYSTEM: Unlabored breathing , clear to auscultation anteriorly HEART: S1 S2 regular rate and rhythm , ABDOMEN: Soft , left lower abdominal tenderness EXTREMITIES: No edema feet - Labs CBC & Chem 7: 03/26/23 06:45 03/25/23 07:41 Labs: Abnormal Lab Results - Last 24 Hours (Table) 03/26/23 Range/Units 06:45 WBC 13.27 H (4.50-10.00) X 10*3/uL RBC 3.61 L (4.10-5.20) X 10*6/uL Hgb 10.7 L (12.0-15.0) d/dL Hct 34.7 L (37.2-46.3) % MCHC 30.8 L (32.0-37.0) d/dL Plt Count 562 H (140-440) X 10*3/uL MPV 9.0 L (9.5-12.2) FL Neutrophils # 9.54 H (1.80-7.70) X 10*3/uL Assessment and Plan (1) Tubo-ovarian abscess Current Visit: Yes Status: Acute Code(s): N70.93 - SALPINGITIS AND OOPHORITIS, UNSPECIFIED SNOMED Code(s): 03838486 Plan: 1patient presented to hospital with left lower abdominal pain did have some vaginal drainage and this patient has been diagnosed with a large left tubo- ovarian abscess, which cannot be drained CT-guided clinically doubt this large abscess will heal with antibiotic therapy alone this has been discussed with the RN PROCEDURES however as the patient does not look toxic and they have suggested continuation of antibiotic while waiting for the inflammation to subside before implanting to drainage of this abscess 2Patient to continue Zosyn 3.375 g every 8 hours and monitor clinical course closely Dictation was produced using [employer] dictation software. please excuse any grammatical, word or spelling errors. Time with Patient: Less than 30
--- NOTE | 2023-03-27 01:50 | PN ---
PROGRESS NOTE A 43-year-old white female with a huge ovarian abscess. The patient wants to be transferred down, so Dr. Lang told him to talk to the doctor down there. White count is increasing. Temp 97.9, pulse 89, respiratory rate 16, blood pressure 109/70. transfer down there and demanding surgery at this point. Continue current treatments. White count is up from 14 to 17, hemoglobin 11.2. Continue current treatments with antibiotics until down and Dr. Amanda recommended transfer to [facility]. MMODL / IJN: [id number] /
== END 2023-03-26 19:31 | disposition short-term general hospital (02) | DRG 720 ==
LOC: EC 19:57 → 4SSUR 22:32 → 1SOBS 22:56 → 4SSUR 03-23 18:15
PROVIDERS: ADMIT Family Medicine; ATTEND Family Medicine
DX: A41.9 Sepsis, unspecified organism (principal); N70.93 Salpingitis and oophoritis, unspecified; N94.10 Unspecified dyspareunia; J45.909 Unspecified asthma, uncomplicated; F31.9 Bipolar disorder, unspecified; F17.200 Nicotine dependence, unspecified, uncomplicated; N39.0 Urinary tract infection, site not specified; N89.8 Other specified noninflammatory disorders of vagina; N92.0 Excessive and frequent menstruation with regular cycle; Z85.41 Personal history of malignant neoplasm of cervix uteri; Z86.19 Personal history of other infectious and parasitic diseases
CPT/HCPCS: 72193; 76830; 80048; 80053; 80170; 82565; 85025; 86140; 87040; 93976; 99285

== ENCOUNTER → 2023-06-26 | Outpatient (CLI) | payer OTHER ==
--- NOTE | 2023-06-26 15:53 | US ---
EXAMINATION TYPE: US pelvis complete transvag DATE OF EXAM: 06/26/2023 COMPARISON: NONE CLINICAL INDICATION: Female, 43 years old with history of N70.93 SALPINGITIS AND OOPHORITIS, UNSPECIF IED; h/o tubo-ovarian abscess 3 months ago, new onset of symptoms now TECHNIQUE: TA/TV. Transabdominal sonographic images of the pelvis were acquired. Transvaginal sono graphic images Date of LMP: 3 months EXAM MEASUREMENTS: Uterus: 7.8 x 3.6 x 2.8 cm Endometrial Stripe: 0.5 cm Right Ovary: 3.0 x 2.3 x 2.0 cm Left Ovary: not seen 1. Uterus: 2. Endometrium: wnl 3. Right Ovary: 2.6 x 1.5 x 2.4cm hemorraghic cyst versus possible abscess 4. Left Ovary: no normal tissue seen 5. Bilateral Adnexa: 8.9 x 5.6 x 7.7cm complex cystic collection within the left adnexa probably con tains ovarian and tubal tissue, increased vascularity. Previously measured 10.8 x 8.4 x 6.4 cm on . 6. Posterior cul-de-sac: wnl IMPRESSION: 1. Recurrent tubo-ovarian abscess left adnexa measuring 8.9 cm versus 10.8 cm on prior exam. Unable t o delineate any normal ovarian tissue. 2. Right ovary appears unusual. Suspect either a 2.6 cm hemorrhagic cyst versus extension of infectio n to this ovary as well.
== END | disposition home or self-care (01) ==
LOC: RADUSWWP 15:01
PROVIDERS: ATTEND Family Medicine
DX: N70.93 Salpingitis and oophoritis, unspecified (principal)
CPT/HCPCS: 76830; 76856

== ENCOUNTER → 2024-03-18 | Outpatient (CLI) | payer OTHER ==
--- NOTE | 2024-03-18 08:38 | USB ---
Reason for Exam: Follow-up at short interval from prior study. Risk Values: Dara 5 year model risk: 0.5%. NCI Lifetime model risk: 6.4%. Technique: Method: Targeted. Findings: The lateral section of the breast of the right breast, the axilla of the right breast and the retroareolar of the right breast were scanned. Technique utilized:US breast limited RT Image; Ultrasound imaging of: Area of concern, retroareolar region and axilla. Simple appearing cyst at 10:00 3 cm from the nipple measuring up to 1.37 m previously much larger on 01/30/2024. Probable fibroadenoma at 7:00 5 cm nipple measuring up to 0.9 cm. This may be smaller than prior. Consider follow-up in 6 months for this lesion. Overall Assessment: Probably benign, BI-RAD 3 Management: Diagnostic Mammogram of the left breast in 6 months. A clinical breast exam by your physician is recommended on an annual basis and results should be correlated with mammographic findings. This exam should not preclude additional follow-up of suspicious palpable abnormalities. Results were given to the patient verbally at the time of exam. [facility], , 03/18/2024 8:34 AM. Electronically signed and approved by: Juan Ramon Lord DO
== END | disposition home or self-care (01) ==
LOC: RADUSWWP 08:01
PROVIDERS: ATTEND Surgery
DX: N60.01 Solitary cyst of right breast (principal)